=== PATIENT | female | born 1990 | race African-American/Black ===

== ENCOUNTER 2018-11-20 10:15 | Emergency (ER) | payer OTHER ==
[~2018-11-20] VITALS: Ht 144.8 cm; Wt 46.7 kg
[~2018-11-20 10:15] MED LIST: HYDROCODONE-AP1 EAC6 PO; IBUPROFEN 200200 M1 PO; POTASSIUM20 PO; PROPRANOLOL 1010 MG PO; TRINATE TABLET1 TAB; XANAX 0.5 MG0.5 MG PO
[2018-11-20] MEDS ORDERED: CYCLOBENZAPRINE5 MG PO (10:49)
[2018-11-20] MEDS ORDERED: OXYCODONE HCL15 MG PO (10:49)
[2018-11-20] MEDS ORDERED: TYLENOL EXTRA500 MG PO (10:49)
[2018-11-20] MEDS ORDERED: NEURONTIN 300300 M1 PO (10:50)
[2018-11-20 12:31] LABS: URINE CLARITY CLOUDY; URINE COLOR BROWNISH; URINE SPECIFIC GRAVITY >= 1.030 (1.005-1.035)
[2018-11-20 12:32] LABS: ICTOTEST (BILI CONFIRMATORY) Negative (Negative); URINE BILIRUBIN NEGATIVE (Negative); URINE BLOOD 3+ (Negative); URINE GLUCOSE-RANDOM* NEGATIVE (Negative); URINE KETONES TRACE (Negative); URINE LEUKOCYTES-REFLEX TRACE (Negative); URINE NITRITE-REFLEX POSITIVE (Negative); URINE PROTEIN (DIPSTICK) 2+ (Negative)
[2018-11-20 12:36] LABS: SQUAMOUS 4-10 Moderate /LPF (0-3); URINE RBC >20 Many /HPF (0-2); URINE WBC-REFLEX >25 Many /HPF (0-5)
[2018-11-20 12:37] LABS: BACTERIA-REFLEX >30 Many /HPF (None Seen); CASTS None Seen /LPF (None Seen); CRYSTALS None Seen /LPF (None Seen)
[2018-11-20] MEDS ORDERED: KEFLEX500 M1 PO (12:50)
[2018-11-20 13:18] VITALS: BP 121/76
== END 2018-11-20 13:19 | disposition home or self-care (01) ==
LOC: ER 10:15
PROVIDERS: Nurse Practitioner
DX: T83.098A Other mechanical complication of other urinary catheter, initial encounter (principal); N39.0 Urinary tract infection, site not specified; Z46.6 Encounter for fitting and adjustment of urinary device

== ENCOUNTER 2019-09-19 09:18 | Inpatient (IN) | payer OTHER ==
[~2019-09-19] VITALS: Ht 144.8 cm; Wt 49.5 kg
[2019-09-19] VITALS (24 sets, daily range): BP systolic 116–145; BP diastolic 73–93
[~2019-09-19 09:18] MED LIST changes: +CYCLOBENZAPRINE5 MG PO; +KEFLEX500 M1 PO; +NEURONTIN 300300 M1 PO; +OXYCODONE HCL15 MG PO; +TYLENOL EXTRA500 MG PO
[2019-09-19 10:33] LABS: ABSOLUTE NEUTROPHILS 4.4 thou/uL (1.4-8.2); BASOPHILS 0.4 % (0.0-2.0); HEMATOCRIT 40.3 % (37.0-47.0); HEMOGLOBIN 13.5 gm/dL (12.0-15.0); LYMPHOCYTES 13.9 % (24.0-44.0); MCH 32.1 pg (26.0-34.0); MCHC 33.5 g/dL (28.0-37.0); MCV 95.8 fL (80.0-100.0); MONOCYTES 5.9 % (1.0-8.0); PLATELET COUNT 361 thou/uL (150-400); POLYS 79.8 % (36.0-66.0); RBC 4.21 mil/uL (4.20-5.00); RDW 13.1 % (10.5-14.5); WBC 5.6 thou/uL (4.0-11.0)
[2019-09-19 10:42] LABS: ANION GAP 10 mmol/L (7-16); BUN 5 mg/dL (7-18); CALCIUM 8.8 mg/dL (8.5-10.1); CHLORIDE 100 mmol/L (98-107); CO2 26 mmol/L (21-32); GLUCOSE 77 mg/dL (74-106); POTASSIUM 3.7 mmol/L (3.5-5.1); SODIUM 136 mmol/L (136-145)
[2019-09-19 10:50] LABS: MAGNESIUM 2.3 mg/dL (1.8-2.4); TROPONIN-I <0.06 ng/mL (<0.06)
--- NOTE | 2019-09-19 13:30 | 2DMMODE ---
Formerly [facility] [place] [address] 2 D/M-MODE ECHOCARDIOGRAM Name: PETRMARIAMA Nelson Room #: REG [facility]#: [id number] Admission: 09/19/19 Attend Phys: Discharge: Date of : 89 Report #: [id number] THIS REPORT FOR: //name// APPROVED REPORT Study performed: 09/19/2019 12:35:41 EXAM: Comprehensive 2D, Doppler, and color-flow Echocardiogram Patient Location: ER Status: routine BSA: 1.37 HR: 122 bpm BP: 137/87 mmHg Rhythm: Tachycardia Other Information Study Quality: Adequate Indications SVT, seizure. 2D Dimensions RVDd: 29.43 mm IVSd: 9.46 (7-11mm) LVOT Diam: 20.19 (18-24mm) LVDd: 41.21 mm PWd: 9.05 (7-11mm) Ascending Ao: 25.94 (22-36mm) LVDs: 24.68 (25-40mm) Aortic Root: 26.97 mm Volumes Left Atrial Volume (Systole) Single Plane 4CH: 17.00 mL Single Plane 2CH: 23.68 mL LA ESV Index: 17.00 mL/m2 Aortic Valve AoV Peak Redd.: 1.32 m/s AO Peak Gr.: 6.94 mmHg LVOT Max P.06 mmHg LVOT Max V: 1.01 m/s WENDIE Vmax: 2.45 cm2 Mitral Valve E/A Ratio: 1.1 MV Decel. Time: 128.84 ms MV E Max Redd.: 0.57 m/s Formerly [facility] [address] [place] [address] 2 D/M-MODE ECHOCARDIOGRAM Name: PETRMARIAMA Room #: REG [facility]#: [id number] Admission: 09/19/19 Attend Phys: Discharge: Date of : 92 Report #: [id number] MV A Redd.: 0.50 m/s MV PHT: 37.36 ms IVRT: 72.66 ms Pulmonary Valve PV Peak Redd.: 0.99 m/s PV Peak Gr.: 3.92 mmHg Tricuspid Valve TR Peak Redd.: 2.02 m/s RAP Estimate: 5.00 mmHg TR Peak Gr.: 16.33 mmHg PA Pressure: 21.00 mmHg Left Ventricle The left ventricle is normal size. There is normal LV segmental wall motion. There is normal left ventricular wall thickness. Left ventricular systolic function is normal. LVEF is 60-65%. The left ventricular diastolic function is normal. Right Ventricle The right ventricle is normal size. The right ventricular systolic function is normal. Atria The left atrium size is normal. The right atrium size is normal. Aortic Valve The aortic valve is normal in structure. No aortic regurgitation is present. There is no aortic valvular stenosis. Mitral Valve The mitral valve is normal in structure. There is no mitral valve regurgitation noted. No evidence of mitral valve stenosis. Tricuspid Valve The tricuspid valve is normal in structure. Trace tricuspid regurgitation. Estimated PAP is 20-25mmHg. Pulmonic Valve The pulmonary valve is normal in structure. Trace pulmonic regurgitation. Great Vessels The aortic root is normal in size. The ascending aorta is normal in size. IVC is normal in size and collapses >50% with inspiration. Formerly [facility] [place] [address] 2 D/M-MODE ECHOCARDIOGRAM Name: PETRMARIAMA [id number] Admission: 09/19/19 Attend Phys: Discharge: Date of : 89 Report #: [id number] Pericardium There is no pericardial effusion. <Conclusion> The left ventricle is normal size. LVEF is 60-65%. The aortic valve is normal in structure. The mitral valve is normal in structure. The tricuspid valve is normal in structure. Trace tricuspid regurgitation. Estimated PAP is 20-25mmHg. The pulmonary valve is normal in structure. Trace pulmonic regurgitation. There is no pericardial effusion. <ELECTRONICALLY SIGNED> By: Pb Pelaez MD 09/19/19 1330 133 1330 Pb Pelaez MD /INF
--- NOTE | 2019-09-19 16:15 | NUR ---
28 y/o female admitted to ICU room 240 with diagnosis of Seizure Like Activity and Persistent Tachycardia. Pt alert and oriented upon arrival requesting antianxiety medication. Tachycardic but BP stable. Afebrile. Cardizem gtt infusing at 10 mg/hr. Normal saline 1 liter bolus infusing via Right AC PIV. Room air SaO2 97%. Lungs clear. BS active. No diarrrhea stools since being seen in ER on 09/18/19 at [facility]... Pt states she was given a shot of something and no stools since. Medications ordered for pt from yeswterday's Emergency Room visit not yet filled and pt does not recall the names of the medications. Denies nausea. Toleraing po. Denies need to void at this time. Mother at bedside, supportive.
[2019-09-19] MEDS ORDERED: XANAX 0.5 MG0.5 MG PO (18:29)
[2019-09-19] MEDS ORDERED: CELEXA10 MG PO (18:30)
[2019-09-19] MEDS ORDERED: BENTYL 20 MG TA20 M1 PO (18:31)
[2019-09-19 21:50] LABS: URINE BILIRUBIN NEGATIVE (Negative); URINE BLOOD 1+ (Negative); URINE CLARITY CLEAR; URINE COLOR YELLOW; URINE GLUCOSE-RANDOM* NEGATIVE (Negative); URINE KETONES NEGATIVE (Negative); URINE LEUKOCYTES-REFLEX NEGATIVE (Negative); URINE NITRITE-REFLEX NEGATIVE (Negative); URINE PROTEIN (DIPSTICK) NEGATIVE (Negative); URINE UROBILINOGEN 0.2 E.U./dl (0.2-1.0)
[2019-09-19 22:02] LABS: AMP/METHAMP Negative (Negative); BARBITURATES Negative (Negative); BENZODIAZEPINES Negative (Negative); COCAINE Negative (Negative); METHADONE Negative (Negative); OPIATES Negative (Negative); PCP Negative (Negative)
[2019-09-19 22:11] LABS: SQUAMOUS 0-3 Few /LPF (0-3); TRANSITIONAL EPITHEL CELL 0-3 Few /LPF (None Seen)
[2019-09-19 22:12] LABS: BACTERIA-REFLEX 1-9 Few /HPF (None Seen); CASTS None Seen /LPF (None Seen); CRYSTALS None Seen /LPF (None Seen); MUCUS 0-3 Light strn/LPF (None Seen); URINE RBC 3-10 Few /HPF (0-2); URINE WBC-REFLEX 0-5 Rare /HPF (0-5)
[2019-09-20] VITALS (23 sets, daily range): BP systolic 90–137; BP diastolic 52–87
--- NOTE | 2019-09-20 05:26 | NUR ---
Pt has had heart rate 90-133. Sinus rhythm when sleeping, 110-115 at rest, 130's with activity. No seizure activity or neuro changes overnight.
--- NOTE | 2019-09-20 09:00 | NUR ---
EEG HERE. PAGED DR. BONILLA FOR PAIN MEDICATION.
--- NOTE | 2019-09-20 10:14 | NUR ---
Chart reviewed and case discussed with the care team. Pt is currently in the ICU for r/o seizure. Splitter Machine visited with the pt and her mom at bedside. The pt reports she lives indep with her child and works fulltime. Her mom is very supportive and involved. CM role introduced. Pt denies any dc needs other than help with paperwork for medical excuse/absence from her employer. Her employer will fax the document to the ICU fax. The pt to complete her portion and provide paperwork to the hospitalist. Cm can provide a letter if needed. Pt instructed to f/u with her pcp if she needs FMLA paperwork completed. The pt is hoping to return to work as soon as she is released from the hospital. Support provided. Cardiac and neuro workup in progress. Will follow.
--- NOTE | 2019-09-20 11:15 | NUR ---
TO MRI VIA WC ON MONITOR FOR MRI.
--- NOTE | 2019-09-20 16:57 | EKG ---
[address] [address] ELECTROCARDIOGRAM REPORT Name: MARIAMA HUMPHREYS Room #: 240-P ADM IN M.R.#: [id number] Admission: 09/19/19 Attend Phys: Gorge Cedillo MD Discharge: Date of : 92 Report #: [id number] THIS REPORT FOR: //name// [facility] ED Test Date: 2019-09-19 Test Time: 09:21:56 Pat Name: MARIAMA HUMPHREYS Department: Room: 240 Gender: F Bankruptcy Assistant: JADON : 1990 Requested By: Jey Barr Order Number: [id number] MD: Morales Isaacs Measurements Intervals [place] Rate: 149 P: 68 [place]: 119 QRS: 72 QRSD: 87 T: -7 QT: 268 QTc: 422 Interpretive Statements Sinus tachycardia Nonspecific ST segment abnormality Compared to ECG 06/24/2014 15:49:[address] segment abnormality is now present Electronically Signed On 09-20-2019 16:57:28 COPY CHASER by Morales Isaacs [email or web address] <ELECTRONICALLY SIGNED> By: Morales Isaacs MD, [facility] 09/20/19 1657 0 0 Morales Isaacs MD, [facility] /EPI
--- NOTE | 2019-09-20 17:19 | EKG ---
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 : 1990 Requested By: Ynes Zaragoza Order Number: [id number] MD: Morales Isaacs Measurements Intervals [place] Rate: 87 P: 48 [place]: 140 QRS: 56 QRSD: 82 T: 39 QT: 397 QTc: 478 Interpretive Statements Sinus rhythm Prolonged QT interval Compared to ECG 06/24/2014 15:49:38 QT interval has lengthened Heart rate has slowed Electronically Signed On 09-20-2019 17:19:37 FAMILY DAY CARE PROVIDER by Morales Isaacs [email or web address] <ELECTRONICALLY SIGNED> By: Morales Isaacs MD, [facility] 09/20/19 1719 00 00 Morales Isaacs MD, [facility] /EPI
[2019-09-21] VITALS (16 sets, daily range): BP systolic 91–123; BP diastolic 51–84
--- NOTE | 2019-09-21 04:32 | NUR ---
AOX4. DENIES PAIN. FOLLOW COMMANDS. AFEBRILE. VSS. PT EDUCATED ABOUT CALLING BEFORE GETTING OUT OF BED, FALL SAFETY PRECAUTIONS AND SEIZURE PRECAUTION IN PLACE. NO COMPLAINS PRESENTLY. PT SLOWLY PROGRESSING TOWARDS GOALS. WILL CONTINUE TO MONITOR
--- NOTE | 2019-09-21 12:15 | EEG ---
[facility] [place] [address] ELECTROENCEPHALOGRAM Name: MARIAMA HUMPHREYS Room #: 240-P ADM IN M.R.#: [id number] Admission: 09/19/19 Attend Phys: Gorge Cedillo MD Discharge: Date of : 92 Report #: [id number] THIS REPORT FOR: //name// CC: [facility] Mayport[facility]vonne Puri Rahat DATE OF SERVICE: 09/20/2019 This patient is being evaluated for seizure. EEG was done by placing the electrodes by standard 10-20 system of electrode placement. Both referential and sequential montages were used for recording. Background activity in this patient's EEG is about 11 Hz and 30 microvolt. The patient became drowsy and that was associated with bilateral slowing and vertex sharp waves. Photic stimulation was unremarkable. Throughout the record, no active epileptiform activity was noticed. IMPRESSION: This patient's EEG is within normal limits. However, EEG can be normal in a patient with seizure disorder in a significant percentage of patients. <ELECTRONICALLY SIGNED> By: Angel Luis Romero MD 09/21/19 1215 0857 0907 Angel Luis Romero MD /nt
[2019-09-21] MEDS ORDERED: KEPPRA750 MG PO (14:05)
[2019-09-21] MEDS ORDERED: XANAX 0.5 MG0.5 MG PO (14:06)
--- NOTE | 2019-09-21 14:10 | NUR ---
PAGED RE. KARAN PADGETT. NEURO SURGEON SAW PT AND STATES THAT HE WILL INFORM PHYSICIANS ABOUT HER ANEURYSM AND THEY WILL CONTACT HER REGARDING TREATMENT. ALSO ASKED MD ABOUT HER [facility]. MD STATES THAT SHE NEEDS TO HAVE HER PCP TAKE CARE OF THAT. DR. BONILLA TO START DISCHARGE AND PROVIDE RX FOR XANAX 10 DAY SUPPLY AND KEPPRA. STATES PT DOES NOT NEED METOPROLOL. AWAITING MD FOR DISCHARGE.
--- NOTE | 2019-09-21 16:00 | NUR ---
DISCHARGE INSTUCTIONS GIVEN. PT AWAITING RIDE.
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
== END 2019-09-21 17:00 | disposition home or self-care (01) | DRG 308 ==
LOC: ER 09:18 → EROBS 13:37 → ICU 13:37
PROVIDERS: Emergency Medicine; Nurse Practitioner Family; ADMIT Hospitalist
PROC: 5A2204Z Restoration of Cardiac Rhythm, Single (ICD-10-PCS; principal; 2019-09-19)
DX: I47.1 Supraventricular tachycardia (principal); E43 Unspecified severe protein-calorie malnutrition; F19.939 Other psychoactive substance use, unspecified with withdrawal, unspecified; G40.909 Epilepsy, unspecified, not intractable, without status epilepticus; F41.9 Anxiety disorder, unspecified; I65.21 Occlusion and stenosis of right carotid artery; I72.9 Aneurysm of unspecified site; Z82.49 Family history of ischemic heart disease and other diseases of the circulatory system; Z83.3 Family history of diabetes mellitus; Z79.899 Other long term (current) drug therapy; Z28.21 Immunization not carried out because of patient refusal
CPT/HCPCS: 10078

== ENCOUNTER 2019-10-10 06:23 | Emergency (ER) | payer OTHER ==
[~2019-10-10] VITALS: Ht 149.9 cm; Wt 49.4 kg
[~2019-10-10 06:23] MED LIST changes: +BENTYL 20 MG TA20 M1 PO; +CELEXA10 MG PO; +KEPPRA750 MG PO
[2019-10-10] MEDS ORDERED: LEVETIRACETAM250 MG PO (06:34)
[2019-10-10 07:20] LABS: HEMOGLOBIN 13.3 gm/dL (12.0-15.0); MCH 32.7 pg (26.0-34.0); MCHC 33.1 g/dL (28.0-37.0); MCV 98.7 fL (80.0-100.0); PLATELET COUNT 426 thou/uL (150-400); RBC 4.06 mil/uL (4.20-5.00); RDW 15.7 % (10.5-14.5); WBC 3.8 thou/uL (4.0-11.0)
[2019-10-10 07:26] LABS: URINE BLOOD NEGATIVE (Negative); URINE COLOR YELLOW; URINE GLUCOSE-RANDOM* NEGATIVE (Negative); URINE KETONES TRACE (Negative); URINE NITRITE-REFLEX NEGATIVE (Negative); URINE PROTEIN (DIPSTICK) 1+ (Negative); URINE SPECIFIC GRAVITY >= 1.030 (1.005-1.035); URINE UROBILINOGEN 0.2 E.U./dl (0.2-1.0)
[2019-10-10 07:28] LABS: URINE LEUKOCYTES-REFLEX 1+ (Negative)
[2019-10-10 07:29] LABS: ICTOTEST (BILI CONFIRMATORY) Negative (Negative); URINE BILIRUBIN NEGATIVE (Negative); URINE CLARITY SL HAZY
[2019-10-10 07:38] LABS: ANION GAP 11 mmol/L (7-16); BUN 6 mg/dL (7-18); CALCIUM 9.5 mg/dL (8.5-10.1); CHLORIDE 104 mmol/L (98-107); CO2 23 mmol/L (21-32); CREATININE 0.8 mg/dL (0.6-1.0); GLUCOSE 106 mg/dL (74-106); SODIUM 138 mmol/L (136-145)
[2019-10-10 07:40] LABS: POTASSIUM 3.3 mmol/L (3.5-5.1)
[2019-10-10 07:47] LABS: ALBUMIN 4.1 g/dL (3.4-5.0); LIPASE 43 U/L (73-393); SGOT 27 U/L (15-37); SGPT 25 U/L (30-65); TOTAL BILIRUBIN 0.8 mg/dL (<0.1-1.0); TROPONIN-I <0.06 ng/mL (<0.06)
--- NOTE | 2019-10-10 08:42 | EKG ---
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
[2019-10-10 08:56] LABS: SQUAMOUS >10 Many /LPF (0-3)
[2019-10-10 08:58] LABS: CASTS None Seen /LPF (None Seen); CRYSTALS None Seen /LPF (None Seen); URINE RBC None Seen /HPF (0-2); URINE WBC-REFLEX 6-15 Few /HPF (0-5)
[2019-10-10 09:02] LABS: ABSOLUTE NEUTROPHILS 1.9 thou/uL (1.4-8.2)
[2019-10-10 09:03] LABS: ANISOCYTOSIS 1+
[2019-10-10 12:34] VITALS: BP 128/72
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
--- NOTE | 2019-10-11 05:45 | P ---
[facility] [place] [address] PROCEDURE REPORT Name: MARIAMA HUMPHREYS Room #: [facility] BARBOURJeannette#: [id number] Admission: 10/10/19 Attend Phys: Discharge: 10/10/19 Date of : 89 Report #: [id number] THIS REPORT FOR: //name// CC: Jey Giang MD PROCEDURE: EGD with biopsies. INDICATION FOR PROCEDURE: Evaluate nausea, vomiting, epigastric pain. Informed consent for this procedure was obtained prior to the administration of any medication. The risks of the procedure, which include bleeding, perforation, infection, complications of sedation and the possibility I could miss something have been explained to the patient and she has indicated her consent by signing. Propofol was slowly titrated before and during this procedure for patient comfort by the anesthesia service. With the patient in the left lateral decubitus position, the Olympus upper videoscope was introduced through the upper esophageal sphincter and advanced under direct visualization to the third portion of the duodenum. Findings are noted on withdrawal of the scope. The visualized portions of the third portion of the duodenum and the distal second portion of the duodenum appeared normal. In the proximal second portion of the duodenum, there is some mild erythema. Duodenal bulb was erythematous. Pylorus, erythematous mucosa. Antrum, erosive erythema is noted. Body, scattered erosions are noted. Cardia and fundus, normal mucosa. Retroflex view did not reveal any abnormalities. The scope was withdrawn into the esophagus. The esophagus was moderately ulcerated distally and edematous and erythematous throughout, probably related to her 48 hours of vomiting. The scope was advanced down into the stomach again. There is no evidence of any bleeding in the upper GI tract. Biopsies obtained from the antrum and the transitional zone for evaluation for Helicobacter pylori infection and other causes of gastritis. Then, the scope was withdrawn slowly through the entire esophagus. No other abnormalities are seen. The scope was withdrawn. The patient went to the recovery area in stable condition. She tolerated the procedure well. IMPRESSION: 1. Moderately severe esophagitis, probably secondary to vomiting. 2. Erosive gastritis distally. 3. Erythematous duodenal bulb. My recommendations are to await the biopsy results. She will be discharged home on Protonix 40 mg 1 p.o. twice a day. We will ask her to stay on a soft diet. [address] [address] PROCEDURE REPORT Name: MARIAMA HUMPHREYS Leslie Room #: DEP NATHALIE Morales#: [id number] Admission: 10/10/19 Attend Phys: Discharge: 10/10/19 Date of : 89 Report #: [id number] I think she might benefit from taking fiber supplements such as Citrucel 2 tablets p.o. q. day with one glass of liquid for her diarrhea prone irritable bowel syndrome. Thank you very much once again for allowing me to participate in her care, Dr. Giang and Dr. Barr. <ELECTRONICALLY SIGNED> By: Jenny Seals DO 10/11/19 0545 [id number] Jenny Seals DO /nt
--- NOTE | 2019-10-12 14:07 | PATH ---
[facility] [address] [place] [address] PATHOLOGY RPT PROCEDURE Name: MARIAMA SALINAS Leslie Room #: DEP Carmen#: [id number] Admission: 10/10/19 Date of : 89 Discharge: 10/10/19 Report #: [id number] Path Case #: [id number] [facility] Accession Number: [id number] . 01 Material submitted: . stomach - BIOPSY OF GASTRITIS R/O H. PYLORI . 01 Clinical history: . Nausea; R/O H. pylori . 02 Diagnosis: Gastric mucosa, gastritis, rule out H. pylori, endoscopic biopsy: - Mild chronic inflammation. - Negative for intestinal metaplasia or atrophy. - Negative for Helicobacter pylori (properly controlled immunohistochemical performed). (IUV:pit; 10/12/2019) QTP 10/12/2019 1240 Local . 02 Electronically signed: . Dede Griffith MD, Pathologist NPI- [id number] . 01 Gross description: . The specimen is received in formalin, labeled "Mariama Salinas, biopsy of gastritis". Received is a segment of pale fallon soft tissue measuring 0.8 cm in maximum dimensions. The specimen is submitted entirely in cassette A1. (CAA; 10/11/2019) QAC/QA 10/11/2019 0836 Local . 02 Pathologist provided ICD-10: K29.50 . 02 CPT . 316547, [id number] Specimen Comment: A courtesy copy of this report has been sent to [phone], [phone] Specimen Comment: [phone], Specimen Comment: Report sent to ,DR KEITA / DR AVENDANO Performed at: 01 [facility] [address] [id number] MD Dung Tolliver MD Phone: [phone] Performed at: [address] [id number] [address] [address] PATHOLOGY RPT PROCEDURE Name: PETRMARIAMA Room #: DEP NATHALIE Morales#: [id number] Admission: 10/10/19 Date of : 89 Discharge: 10/10/19 Report #: [id number] Path Case #: [id number] MD Dede Griffith MD Phone: [phone]
== END 2019-10-10 12:34 | disposition home or self-care (01) ==
LOC: ER 06:23
PROVIDERS: Emergency Medicine
DX: R10.33 Periumbilical pain (principal); R11.2 Nausea with vomiting, unspecified; K58.9 Irritable bowel syndrome, unspecified; G89.29 Other chronic pain; Z79.899 Other long term (current) drug therapy
CPT/HCPCS: 62110; 62900

== ENCOUNTER 2020-06-05 07:15 | Emergency (ER) | payer OTHER ==
[~2020-06-05] VITALS: Ht 144.8 cm; Wt 52.6 kg
[~2020-06-05 07:15] MED LIST changes: +LEVETIRACETAM250 MG PO
[2020-06-05] MEDS ORDERED: PROTONIX40 M2 PO (07:33)
[2020-06-05 07:41] LABS: URINE BLOOD 3+ (Negative); URINE CLARITY CLOUDY; URINE COLOR YELLOW; URINE GLUCOSE-RANDOM* NEGATIVE (Negative); URINE KETONES NEGATIVE (Negative); URINE LEUKOCYTES-REFLEX NEGATIVE (Negative); URINE NITRITE-REFLEX NEGATIVE (Negative); URINE PROTEIN (DIPSTICK) 2+ (Negative); URINE SPECIFIC GRAVITY >= 1.030 (1.005-1.035); URINE UROBILINOGEN 0.2 E.U./dl (0.2-1.0)
[2020-06-05 07:44] LABS: ICTOTEST (BILI CONFIRMATORY) Negative (Negative); URINE BILIRUBIN NEGATIVE (Negative)
[2020-06-05 07:49] LABS: ABSOLUTE NEUTROPHILS 2.7 thou/uL (1.4-8.2); EOSINOPHILS 0.2 % (0.0-3.0); HEMATOCRIT 46.5 % (37.0-47.0); HEMOGLOBIN 15.6 gm/dL (12.0-15.0); LYMPHOCYTES 34.1 % (24.0-44.0); MCH 31.9 pg (26.0-34.0); MCHC 33.6 g/dL (28.0-37.0); MCV 94.9 fL (80.0-100.0); MONOCYTES 9.4 % (1.0-8.0); PLATELET COUNT 334 thou/uL (150-400); POLYS 55.3 % (36.0-66.0); RDW 13.2 % (10.5-14.5); WBC 4.8 thou/uL (4.0-11.0)
[2020-06-05 08:03] LABS: CREATININE 0.9 mg/dL (0.6-1.0); POTASSIUM 3.4 mmol/L (3.5-5.1)
[2020-06-05 08:08] LABS: ALBUMIN 4.3 g/dL (3.4-5.0); TOTAL BILIRUBIN 0.6 mg/dL (0.2-1.0); TOTAL PROTEIN 8.5 g/dL (6.4-8.2)
[2020-06-05 08:59] LABS: CASTS None Seen /LPF (None Seen); MUCUS >6 Heavy strn/LPF (None Seen); SQUAMOUS >10 Many /LPF (0-3)
[2020-06-05 09:00] LABS: BACTERIA-REFLEX 1-9 Few /HPF (None Seen); CRYSTALS None Seen /LPF (None Seen); URINE RBC >20 Many /HPF (0-2); URINE WBC-REFLEX 0-5 Rare /HPF (0-5)
[2020-06-05] MEDS ORDERED: PROTONIX40 MG PO (11:48)
[2020-06-05] MEDS ORDERED: ONDANSETRON ODT8 MG PO (11:48)
[2020-06-05 12:31] VITALS: BP 135/99
== END 2020-06-05 12:33 | disposition home or self-care (01) ==
LOC: ER 07:15
PROVIDERS: Emergency Medicine
DX: K27.9 Peptic ulcer, site unspecified, unspecified as acute or chronic, without hemorrhage or perforation (principal); R11.2 Nausea with vomiting, unspecified; R19.7 Diarrhea, unspecified; R10.13 Epigastric pain; G89.29 Other chronic pain

== ENCOUNTER 2020-07-25 08:21 | Inpatient (IN) | payer OTHER ==
[2020-07-25] VITALS (7 sets, daily range): BP systolic 86–169; BP diastolic 50–101
[~2020-07-25] VITALS: Ht 144.8 cm; Wt 57.6 kg
[~2020-07-25 08:21] MED LIST changes: +ONDANSETRON ODT8 MG PO; +PROTONIX40 M2 PO; +PROTONIX40 MG PO
[2020-07-25] MEDS ORDERED: LORAZEPAM 0.50.5 MG PO (08:30)
[2020-07-25 09:04] LABS: BASOPHILS 0.9 % (0.0-2.0); EOSINOPHILS 0.1 % (0.0-3.0); HEMATOCRIT 43.8 % (37.0-47.0); HEMOGLOBIN 14.8 gm/dL (12.0-15.0); LYMPHOCYTES 38.3 % (24.0-44.0); MCH 32.1 pg (26.0-34.0); MCHC 33.8 g/dL (28.0-37.0); MCV 95.1 fL (80.0-100.0); MONOCYTES 10.3 % (1.0-8.0); PLATELET COUNT 456 thou/uL (150-400); POLYS 50.4 % (36.0-66.0); RBC 4.61 mil/uL (4.20-5.00); RDW 14.8 % (10.5-14.5)
[2020-07-25 09:18] LABS: CALCIUM 8.5 mg/dL (8.5-10.1); CREATININE 0.6 mg/dL (0.6-1.0); POTASSIUM 3.6 mmol/L (3.5-5.1)
[2020-07-25 09:24] LABS: TOTAL BILIRUBIN 0.4 mg/dL (0.2-1.0); TOTAL PROTEIN 8.4 g/dL (6.4-8.2)
[2020-07-25 09:42] LABS: URINE BILIRUBIN NEGATIVE (Negative); URINE BLOOD 3+ (Negative); URINE GLUCOSE-RANDOM* NEGATIVE (Negative); URINE KETONES NEGATIVE (Negative); URINE LEUKOCYTES-REFLEX NEGATIVE (Negative); URINE NITRITE-REFLEX NEGATIVE (Negative); URINE PROTEIN (DIPSTICK) 2+ (Negative); URINE SPECIFIC GRAVITY >= 1.030 (1.005-1.035); URINE UROBILINOGEN 0.2 E.U./dl (0.2-1.0)
[2020-07-25 09:44] LABS: URINE CLARITY SL HAZY; URINE COLOR DK YELLOW
[2020-07-25 10:10] LABS: SQUAMOUS 4-10 Moderate /LPF (0-3)
[2020-07-25 10:11] LABS: CRYSTALS None Seen /LPF (None Seen); HYALINE CASTS 0-3 Few /LPF (None Seen)
[2020-07-25 10:12] LABS: URINE WBC-REFLEX 0-5 Rare /HPF (0-5)
[2020-07-25 10:13] LABS: BACTERIA-REFLEX 1-9 Few /HPF (None Seen)
[2020-07-25 10:34] LABS: AMP/METHAMP Negative (Negative); BARBITURATES Negative (Negative); BENZODIAZEPINES Negative (Negative); COCAINE Negative (Negative); METHADONE Negative (Negative); OPIATES Negative (Negative); PCP Negative (Negative)
--- NOTE | 2020-07-25 16:50 | NUR ---
PT ARRIVED ON UNIT [id number] FROM ER TO ROOM 356 PT ALERT XS 4 AMBULATORY W/O ASSISTIVE DEVICES. IV ACSESS IV ABT'S RAN ORDERED. TELE HOOKED UP SHOWS TACHY. V'S : 98.1 18 100 154/94 99 %RA NO O2. HGT 4'9" WEIGHT IS 107 LBS. PT IS PLEASANT AND COOPERATIVE WITH CARE GIVEN ZOFRAN IV PUSH FENTANYL FOR PAIN.
[2020-07-26 04:40] VITALS: BP 150/102
--- NOTE | 2020-07-26 04:56 | NUR ---
CALLS APPROP FOR ASSIST UP TO BR. COMPLAINS OF PAIN TO THROAT AND GENERALIZED ACHINESS, AND BACK PAIN. CONITNUES TO HAVE DIFFICAULTY WITH NAUSEA. ACCORDING TO PATIENT IT IS NEVER COMPLETELY GONE. COVID NEGATVE PER LABS.
[2020-07-26 06:55] VITALS: BP 148/109
[2020-07-26 07:34] LABS: HEMATOCRIT 37.3 % (37.0-47.0); MCH 32.1 pg (26.0-34.0); MCHC 33.5 g/dL (28.0-37.0); MCV 95.8 fL (80.0-100.0); RBC 3.89 mil/uL (4.20-5.00); RDW 14.7 % (10.5-14.5); WBC 4.2 thou/uL (4.0-11.0)
[2020-07-26 07:38] LABS: HEMOGLOBIN 12.5 gm/dL (12.0-15.0)
[2020-07-26 07:49] LABS: CREATININE 0.6 mg/dL (0.6-1.0); POTASSIUM 3.8 mmol/L (3.5-5.1)
[2020-07-26 10:52] VITALS: BP 148/109
--- NOTE | 2020-07-26 11:08 | NUR ---
Assumed care of patient at 0700. Patient is calm and cooperative. Pt. complains of a headache. Patient was stable and walking without needed assistance. Doctor rounded on patient and requested discharge of patient as she was stable without any current needs to be met. Pt. was discharged and educated. No reported further needs.
== END 2020-07-26 11:57 | disposition home or self-care (01) | DRG 392 ==
LOC: ER 08:21 → EROBS 11:54 → 3W 12:35 → 4W 07-26 07:02
PROVIDERS: Emergency Medicine; ADMIT Hospitalist; ATTEND Hospitalist
DX: K58.0 Irritable bowel syndrome with diarrhea (principal); R11.2 Nausea with vomiting, unspecified; F41.9 Anxiety disorder, unspecified; M54.9 Dorsalgia, unspecified; J45.909 Unspecified asthma, uncomplicated; G89.29 Other chronic pain; E86.0 Dehydration; R56.9 Unspecified convulsions; Z20.828 Contact with and (suspected) exposure to other viral communicable diseases; Z79.899 Other long term (current) drug therapy
CPT/HCPCS: 10879